=== PATIENT | female | born 1965 ===

== ENCOUNTER → 2016-05-26 | Outpatient (REF) | payer OTHER ==
[~2016-05-26] MED LIST: HYDR12.55 PO; IRON65TA PO; NEXI20GR PO; TYLE325T5 PO
[2016-05-26 18:35] LABS: MEAN CORPUSCULAR HEMOGLOBIN 20.9 pg (27.0-33.0); MEAN CORPUSCULAR HGB CONC 28.6 g/dl (32.0-36.5); RED CELL DISTRIBUTION WIDTH 22.5 % (11.5-14.5); WHITE BLOOD COUNT 7.5 K/mm3 (4.0-10.0)
== END ==
LOC: M LABDRAW1 16:09
PROVIDERS: ATTEND Family Medicine
DX: D64.9 Anemia, unspecified (principal)